=== PATIENT | female | born 1950 | race Caucasian/White ===

== ENCOUNTER 2018-03-28 00:36 | Outpatient (CLI) | payer MEDICARE, SELFPAY ==
--- NOTE | 2018-03-28 14:50 | DI.RAD_ITS ---
SYMPTOMS/DIAGNOSIS: MENOPAUSAL, Z78.0 DEXA SCAN WITH ASHLEY: The ASHLEY image shows no evidence of compression fractures. The upper thoracic vertebral bodies are not included on the exam. There are degenerative changes in the lumbar spine. The bone mineral density measurements of the lumbar spine correspond to a total T score of -0.5, in the normal range. The bone mineral density measurements of the left hip correspond to a total T score of -1.1 and a femoral neck T score of -1.3, in the osteopenic range. The left forearm bone mineral density measurements correspond to a T score of the distal third of - 0.6, in the normal range. IMPRESSION: Osteopenia of the left hip. Normal bone mineral density of the lumbar spine and left forearm.
--- NOTE | 2018-03-28 15:05 | DI.MAMMO_ITS ---
SYMPTOM/DIAGNOSIS: SCREENING, FAMILY H/O BREAST CA, Z12.31 MAMMOGRAMS: Mammograms were interpreted according to the usual protocol including computer analysis with CAD system, tomosynthesis and C view imaging. Comparison is made with exams from [id number]. The breasts are composed of heterogeneously dense fibroglandular tissue. Breast density, category C. No suspicious masses or suspicious microcalcifications are seen. There has been no significant change. IMPRESSION: Category 1C, negative mammogram. Yearly screening mammography is recommended. [facility] ASSESSMENT OF FINDINGS: Negative. Category 1. Patient will receive a letter notifying them of these results. Bi-RADS category C. The breasts are heterogeneously dense, which may obscure small masses.
== END 2018-03-28 00:56 ==
PROVIDERS: PCP Family Medicine; Visit Provider Family Medicine
DX: Z12.31 Encounter for screening mammogram for malignant neoplasm of breast (principal); Z80.3 Family history of malignant neoplasm of breast; M85.88 Other specified disorders of bone density and structure, other site; Z78.0 Asymptomatic menopausal state
CPT/HCPCS: 77063; 77067; 77080

== ENCOUNTER 2018-10-19 10:33 | Outpatient (REF) | payer MEDICARE, SELFPAY ==
[2018-10-19 15:01] LABS: TSH (W/Ref FT4) 3.26 uIU/mL (0.36-3.74)
== END 2018-10-19 10:53 ==
LOC: NCHCN 10:33
PROVIDERS: PCP Family Medicine; Visit Provider Family Medicine
DX: E03.9 Hypothyroidism, unspecified (principal)
CPT/HCPCS: 84443

== ENCOUNTER 2019-03-15 08:41 | Outpatient (REF) | payer MEDICARE, SELFPAY ==
[2019-03-15 12:53] LABS: ALT 21 U/L (14-59); AST 18 U/L (15-37); Albumin 4.2 g/dL (3.4-5.0); Alkaline Phosphatase 66 U/L (46-116); Anion Gap 6.4 mmol/L (3-11); BUN 16 mg/dL (7-18); Bilirubin, Total 0.6 mg/dL (0.2-1.0); CO2 30.6 mmol/L (21.0-32.0); CREATININE 0.81 mg/dL (0.55-1.02); Calcium 9.5 mg/dL (8.5-10.1); Calculated LDL 155 mg/dL; Chloride 101 mmol/L (98-107); Cholesterol 237 mg/dL (<200); Glucose 99 mg/dL (74-106); HDL Cholesterol 61 mg/dL (40-60); Sodium 138 mmol/L (136-145); TSH (W/Ref FT4) 3.75 uIU/mL (0.36-3.74); Total Protein 7.1 g/dL (6.4-8.2); Triglyceride 105 mg/dL (<150)
[2019-03-15 13:12] LABS: FREE T4 1.04 ng/dL (0.76-1.46)
== END 2019-03-15 09:01 ==
LOC: NCHCN 08:41
PROVIDERS: PCP Family Medicine; Visit Provider Family Medicine
DX: E03.9 Hypothyroidism, unspecified (principal); E78.5 Hyperlipidemia, unspecified; Z86.39 Personal history of other endocrine, nutritional and metabolic disease
CPT/HCPCS: 80053; 80061; 84439; 84443

== ENCOUNTER 2019-10-20 11:52 | Emergency (ER) | payer MEDICARE, SELFPAY ==
[2019-10-20 11:57] VITALS: PULSE 58; RESP 16; TEMP 36.4; O2SAT 98
--- NOTE | 2019-10-20 12:02 | ED.GENADUL_ITS ---
Discharge Plan Disposition Patient Disposition: HOME Condition: Stable Discharge Details Chief Complaint: Laceration Clinical Impression: Laceration of left index finger Primary Care Provider: Lyric Matos ED Provider: Nica Weaver Home Meds and New Rx's Prescriptions: No Action multivitamin [Daily Multiple] 1 EACH tablet 1 tab PO DAILY RF: 0 fexofenadine [Hodan Allergy] 60 MG tablet 60 mg PO DAILY RF: 0 metoprolol succinate 50 MG tablet extended release 24 hr 50 mg PO DAILY RF: 0 ibuprofen 600 MG tablet 600 mg PO QID PRN (Reason: Pain) Qty: 15 RF: 0 ondansetron 4 MG tablet,disintegrating 4 mg PO Q6H PRN (Reason: Nausea) Qty: 10 RF: 0 Discharge Instructions Instructions: Finger Laceration (ED) Additional Instructions: Have sutures removed in 5 to 7 days. Return sooner for any increased redness, swelling, drainage or signs of infection. Please take Tylenol or Ibuprofen with food every 4-6 hours as needed for pain and swelling. Lidocaine anesthetic will wear off in approximately 2 hours. No soaking. After 12 to 24 hours you may wash wound under running soap and water, allow to air dry every day. Keep clean and dry and covered when outside. Referrals: Lyric Matos [Primary Care Provider] - Discharge Data Discharge Date/Time-TO BE ENTERED AT DEPARTURE: 10/20/19 12:45 Medical Decision Making 69-year-old female presents to the ER with chief complaint of left index finger laceration. Approximately an hour prior to arrival patient was using a sewing machine when her finger got caught in the needle, she pulled her finger out sustaining a laceration. There is approximately 0.6 cm in length to the distal tip of her left index finger. There is a slow venous ooze noted upon arrival. She does have full range of motion noted to her finger. Last tetanus shot was 2011 she does not take any blood thinners or aspirin daily. As noted in procedure note above, wound cleaned with chlorhexidine and sterile saline, infiltrated with 1% lidocaine without epi, patient tolerated well. Finger turnicot applied for procedure to control bleeding. Was on for approximately 5 to 10 minutes. 3 simple interrupted sutures placed 5.0 Prolene. Patient tolerated well, anesthesia achieved. Nonadherent dressing applied by staffing operations manager prior to discharge. Discussed home care and having sutures removed in 7 days, verbalized understanding. Discussed red flags and strict return instructions including infection or concerns. Verbalized understanding. HPI General Mode of arrival: ambulatory . Date/Time Provider Initiated Documentation: 10/20/19 12:01 . Limitations to Documentation: no limitations . Information obtained by: patient . HPI Narrative: 69-year-old female presents to the ER with chief complaint of left index finger laceration. Approximately an hour prior to arrival patient was using a sewing machine when her finger got caught in the needle, she pulled her finger out sustaining a laceration. There is approximately 0.6 cm in length to the distal tip of her left index finger. There is a slow venous ooze noted upon arrival. She does have full range of motion noted to her finger. Last tetanus shot was 2011 she does not take any blood thinners or aspirin daily. Related Data Home Medications Medication Instructions Recorded Confirmed fexofenadine [Hodan Allergy] 60 mg PO DAILY 10/30/16 10/20/19 metoprolol succinate 50 mg PO DAILY 10/30/16 10/20/19 multivitamin [Daily Multiple] 1 tab PO DAILY 10/30/16 10/20/19 ibuprofen 600 mg PO QID PRN #15 tablet 11/02/16 10/20/19 ondansetron 4 mg PO Q6H PRN #10 tabef 11/02/16 10/20/19 Previous Rx's Medication Instructions Recorded ibuprofen 600 mg PO QID PRN #15 tablet 11/02/16 ondansetron 4 mg PO Q6H PRN #10 tabef 11/02/16 Allergies Allergy/AdvReac Type Severity Reaction Status Date / Time Penicillins Allergy Intermediate Hives Unverified 10/20/19 12:02 General Stated Complaint: Laceration ÁNGEL: 4 Review of Systems All systems reviewed & are unremarkable except as noted in HPI and below Integumentary/Breasts Skin/Breast: Reports wounds (Laceration noted to the distal tip of her left index finger.) [facility] Social History Smoking/Tobacco Use Status: Never Alcohol Intake: current Alcohol Intake frequency: 0-2 drinks per day Drug use: Never Do you feel safe at home: Yes Do you feel safe in your relationship?: Yes Exam Narrative Exam Narrative: Constitutional: Alert and oriented x3. Appears stated age. Normal body habitus. Head: Normocephalic, no trauma. Chest: RRR, Normal S1, S2, distal pulses intact. Resp: Lungs clear to auscultation bilaterally, no wheezes, rales, or rhonchi. Musculoskeletal: Normal gait, 5/5 strength to all four extremities. Skin: Capillary refill less than 2 sec. approximately 0.6 cm laceration noted to the distal tip of patient's left index finger, there is a slow venous ooze noted. Partial-thickness. See below Hematologic/Lymphatic: No ecchymosis, no lymphadenopathy. Extrem Hand/finger images: 1. Laceration Course Vital Signs Vital signs: Vital Signs Temperature 36.4 C L 10/20/19 11:57 Pulse 58 L 10/20/19 11:57 Respiratory Rate 16 10/20/19 11:57 Pulse Oximetry 98 10/20/19 11:57 Temperature 36.4 C L 10/20/19 11:57 Temperature Source Temporal Artery Scan 10/20/19 11:57 Pulse 58 L 10/20/19 11:57 Respiratory Rate 16 10/20/19 11:57 Respiratory Effort Non-Labored 10/20/19 12:00 Blood Pressure Position Sitting 10/20/19 11:57 Pulse Oximetry 98 10/20/19 11:57 Oxygen Delivery Method Room Air 10/20/19 11:57 Oxygen Flow Rate 0 10/20/19 11:57 Pain Level 1 10/20/19 11:57 Procedures Laceration Laceration 1: Site: hand (index finger) Side (If applicable): left Size (cm): 0.6 Description: irregular Depth: simple, single layer Local Anesthetic: Lidocaine 1% Amount of anesthesia used (mL): 1 Pre-repair: wound explored and irrigated extensively Skin layer closed with: nylon Size (cm): 5-0 Number of sutures: 3 Technique: simple, interrupted
== END 2019-10-20 12:45 | disposition home or self-care (01) ==
LOC: ER 12:52
PROVIDERS: Emergency Provider Registered Nurse Emergency; PCP Family Medicine
DX: S61.211A Laceration without foreign body of left index finger without damage to nail, initial encounter (principal); W27.3XXA Contact with needle (sewing), initial encounter
CPT/HCPCS: 12001

== ENCOUNTER 2019-10-26 09:59 | Emergency (ER) | payer MEDICARE, SELFPAY ==
--- NOTE | 2019-10-26 10:02 | ED.GENADUL_ITS ---
Discharge Plan Disposition Patient Disposition: HOME Condition: Good Discharge Details Chief Complaint: SutureRem Clinical Impression: Visit for suture removal Primary Care Provider: Lyric Matos ED Provider: Kasia Batres Home Meds and New Rx's Prescriptions: Continued multivitamin [Daily Multiple] 1 EACH tablet 1 tab PO DAILY RF: 0 fexofenadine [Hodan Allergy] 60 MG tablet 60 mg PO DAILY RF: 0 metoprolol succinate 50 MG tablet extended release 24 hr 50 mg PO DAILY RF: 0 ibuprofen 600 MG tablet 600 mg PO QID PRN (Reason: Pain) Qty: 15 RF: 0 Discharge Instructions Instructions: Stitches Removal (ED) Additional Instructions: Your wound appears to be healing well. Please still continue to be careful with this as it is healing, wear gloves or Band-Aid when appropriate. Please monitor for signs of infection including redness, warmth, drainage, increased pain, fever/chills. If develop these or other new/worsening symptoms seek care urg ently once again. Follow-up with primary care as needed. Referrals: Lyric Matos [Primary Care Provider] - Medical Decision Making Patient is a pleasant 69-year-old female presented to complaint suture removal. 1 week ago, #3 simple interrupted stitches were placed into the left index finger after patient suffered laceration. #2 were visualized today. The third seems to have come out. 1 of the 2 that were remaining was broken. These were easily removed by myself. Wound appears to be healing well with no evidence of infection. We discussed continued wound care. Return precautions were given. All the questions and concerns were addressed in agreement this plan. HPI General Mode of arrival: ambulatory . Date/Time Provider Initiated Documentation: 10/26/19 10:01 . Limitations to Documentation: no limitations . Information obtained by: patient and RN notes reviewed . History of Present Illness 69 year old F presents to the emergency department with the chief complaint of suture removal, described as mild (denies pain at this time), and is localized to the left and upper extremity. Patient reports no radi ation. Patient started experiencing this week(s) (1) No relieving factors improve symptom(s), No exacerbating factors reported . Patient notes no other symptoms.. Patient did receive the following treatments prior to arrival, none Related Data Home Medications Medication Instructions Recorded Confirmed fexofenadine [Hodan Allergy] 60 mg PO DAILY 10/30/16 10/26/19 metoprolol succinate 50 mg PO DAILY 10/30/16 10/26/19 multivitamin [Daily Multiple] 1 tab PO DAILY 10/30/16 10/26/19 ibuprofen 600 mg PO QID PRN #15 tablet 11/02/16 10/26/19 Previous Rx's Medication Instructions Recorded ibuprofen 600 mg PO QID PRN #15 tablet 11/02/16 Allergies Allergy/AdvReac Type Severity Reaction Status Date / Time Penicillins Allergy Intermediate Hives Unverified 10/26/19 10:07 General ÁNGEL: 4 Review of Systems Constitutional Constitutional: Reports as per HPI, Denies chills, Denies fever(s) and Denies weakness Musculoskeletal Musculoskeletal: Reports as per HPI and Denies tingling Integumentary/Breasts Skin/Breast: Reports as per HPI Neurologic Neurologic: Denies sensory deficit, Denies tingling and Denies weakness PFS Social History Smoking/Tobacco Use Status: Never Alcohol Intake: current Alcohol Intake frequency: 0-2 drinks per day Drug use: Never Do you feel safe at home: Yes Do you feel safe in your relationship?: Yes Exam Const General: cooperative, healthy appearing, comfortable, no acute distress and well developed Nutritional Appearance: average body habitus and well nourished Orientation: alert and awake Resp Effort & Inspection: normal respiratory effort, able to speak in complete sentences and no respiratory distress Cardio Rate: regular rate Rhythm: regular rhythm Skin Trauma: laceration (healing well to distal left index finger) Neuro General: patient alert and patient awake Cognition: normal cognition Speech: speech normal Gait: normal gait Motor: muscle tone normal throughout Extrem Hand/finger images: 1. appears to be healing well with no signs of infection. Sensation deficit over tony wound itself, sensation intact around wound Psych Appearance: grossly normal and well kempt Mental Status: mental status grossly normal Speech and Movement: speech and movement normal
[2019-10-26 10:03] VITALS: BP 106/92; PULSE 72; RESP 18; TEMP 36.3; O2SAT 98
[2019-10-26 10:07] VITALS: BP 106/92; PULSE 72; RESP 18; TEMP 36.3; O2SAT 98
== END 2019-10-26 10:11 | disposition home or self-care (01) ==
PROVIDERS: Emergency Provider Physician Assistant; PCP Family Medicine
DX: S61.211D Laceration without foreign body of left index finger without damage to nail, subsequent encounter (principal); W27.3XXD Contact with needle (sewing), subsequent encounter; Z48.02 Encounter for removal of sutures

== ENCOUNTER 2019-11-29 02:11 | Outpatient (CLI) | payer MEDICARE, SELFPAY ==
--- NOTE | 2019-11-29 | DI.RAD_ITS ---
EXAM: XR HIP RT COMPLETE AP PELVIS INDICATION: SI JOINT PAIN,M53.3,. COMPARISON: No exams were available for comparison TECHNIQUE: 2D digital imaging was performed. FINDINGS: Hip joint spaces are well maintained. There is minimal acetabular spurring bilaterally. The SI join ts are unremarkable. There is no evidence bony erosion or significant degenerative change or abnorma l widening. Degenerative disc changes are seen at L4-5 and L5-S1. IMPRESSION: Minimal degenerative changes of the hips and SI joints. DATA REPOSITORY: RADIATION DOSE DELIVERED:
== END 2019-11-29 02:31 ==
PROVIDERS: PCP Family Medicine; Visit Provider Family Medicine
DX: M16.0 Bilateral primary osteoarthritis of hip (principal); M53.3 Sacrococcygeal disorders, not elsewhere classified; M47.816 Spondylosis without myelopathy or radiculopathy, lumbar region
CPT/HCPCS: 73502

== ENCOUNTER 2020-03-06 01:02 | Outpatient (CLI) | payer MEDICARE, SELFPAY ==
--- NOTE | 2020-03-06 12:25 | DI.MAMMO_ITS ---
EXAM: MG MAMMO SCREENING CLINICAL HISTORY: SCREENING, Z12.31, FAMILY H/O BRESAT CA. TECHNIQUE: Bilateral full field digital CC and MLO mammographic images were obtained with 3D tomosyn thesis and utilizing computer aided detection (CAD). COMPARISON: Prior mammograms dating back to 2010, the most recent being February 2018. This patient' s sister was diagnosed with breast cancer at age 50. FINDINGS: The fibroglandular tissue is again noted be dense, this decreasing the sensitivity of the mammogram f or finding hidden underlying lesions. There are no obvious spiculated masses nor malignant appearing microcalcification groups. There is n o significant architectural distortion nor skin thickening-retraction. IMPRESSION: Dense bilateral fibroglandular tissue. No obvious radiographic evidence of malignancy nor significan t change compared to the prior studies listed above. BI-RADS Category 1 - Negative Breast Density - Category C - Heterogeneously dense Breast density Category C or D implies that the patient has dense breast tissue. Dense breast tissue can make it harder to find cancer on a mammogram. Dense breast tissue is also associated with an incr eased risk of breast cancer. This information about the result of the mammogram report was provided to the patient to raise their awareness. Use this report when you speak with the patient about their risks for breast cancer, which includes their family history. At that time, you may recommend additional screening tests (Ultrasoun d or MRI) as these tests may add significant information. A negative radiographic report should not delay biopsy if a dominant or clinically suspicious mass is present. Up to ten percent of cancers are not identified on mammography. A negative report may reinforce clinical impression. Adenosis and dense breasts may obscure an underlying neoplasm. False positive reports average 6 to 10%. Patient will receive a letter notifying them of these results.
== END 2020-03-06 01:22 ==
PROVIDERS: PCP Family Medicine; Visit Provider Nurse Practitioner Family
DX: Z12.31 Encounter for screening mammogram for malignant neoplasm of breast (principal); Z80.3 Family history of malignant neoplasm of breast
CPT/HCPCS: 77063; 77067

== ENCOUNTER → 2020-03-27 08:54 | Outpatient (BNVA) | payer MEDICARE, SELFPAY | PROVIDERS: PCP Family Medicine; Referring Provider Family Medicine; Visit Provider Student in an Organized Health Care Education/Training Program | DX: M65.341 Trigger finger, right ring finger (principal) | CPT/HCPCS: 20550; 99213; J1030 ==

== ENCOUNTER 2020-06-04 13:17 | Outpatient (REF) | payer MEDICARE, SELFPAY | END 2020-06-04 13:18 | disposition home or self-care (01) | LOC: NCHCN 13:17 | PROVIDERS: PCP Family Medicine | DX: E03.9 Hypothyroidism, unspecified (principal) | CPT/HCPCS: 84443 ==

== ENCOUNTER 2020-10-13 03:41 | Outpatient (CLI) | payer MEDICARE, SELFPAY ==
--- NOTE | 2020-11-13 12:03 | W.CARDEVENT ---
Date of service: 11/13/20 Time of Service: 12:03 Cardiac Event Recorder Referring Provider:: Lyric Marcus Indications:: Syncope Cardiac Event Note: This is a 30-day cardiac event recorder, reportedly ordered for syncope. Predominant rhythm was sinus. Average heart rate was 62. Minimum was 48 There were rare atrial and ventricular ectopic beats There were several episodes of supraventricular tachycardia, 1 of which was associated with symptoms of fluttering. Heart rate was 1 30-1 45. The duration of the tachycardia was not clear. This may represent atrial flutter. There was no high-grade AV block. There were no pauses greater than 3 seconds
== END 2020-10-13 03:42 | disposition home or self-care (01) ==
LOC: RT 03:41
PROVIDERS: PCP Family Medicine; Visit Provider Family Medicine
DX: R55 Syncope and collapse (principal)
CPT/HCPCS: 93270

== ENCOUNTER 2020-11-13 12:03 | Outpatient (CLI) | payer MEDICARE, SELFPAY | END 2020-11-13 12:04 | LOC: CARDO 11-14 12:31 | PROVIDERS: PCP Family Medicine; Referring Provider Family Medicine; Visit Provider Internal Medicine Cardiovascular Disease | DX: R55 Syncope and collapse (principal); I47.1 Supraventricular tachycardia | CPT/HCPCS: 93272 ==

== ENCOUNTER → 2021-01-19 08:13 | Outpatient (BNVA) | payer MEDICARE, SELFPAY | PROVIDERS: PCP Family Medicine; Referring Provider Family Medicine | DX: M65.341 Trigger finger, right ring finger (principal) | CPT/HCPCS: 99213 ==

== ENCOUNTER 2021-02-20 01:56 | Outpatient (CLI) | payer MEDICARE, SELFPAY ==
[2021-02-20 10:37] LABS: Source Nasal/Nares
[2021-02-21 13:55] LABS: COVID-19 PCR Negative (Negative)
== END 2021-02-20 01:57 | disposition home or self-care (01) ==
LOC: LBO 01:56
PROVIDERS: PCP Family Medicine; Visit Provider Student in an Organized Health Care Education/Training Program
DX: Z20.822 Contact with and (suspected) exposure to COVID-19 (principal)
CPT/HCPCS: 87635

== ENCOUNTER 2021-02-23 13:58 | Day surgery (SDC) | payer MEDICARE, SELFPAY ==
--- NOTE | 2021-02-23 11:09 | W.PM.DSUDISC ---
Discharge Plan Disposition Patient Disposition: HOME Condition: Good Discharge Details Reason For Visit: Right Ring Finger Trigger Finger Attending Provider: Joseph Ortega Primary Care Provider: Lyric Matos Home Meds and New Rx's Prescriptions: New acetaminophen 500 mg capsule 1,000 mg PO Q8H PRN PRNQty: 15 RF: 0 hydrocodone-acetaminophen 5-325 mg tablet 1 tab PO Q6H PRNQty: 5 RF: 0 ibuprofen 600 mg tablet 600 mg PO TID Qty: 15 RF: 0 Continued cholecalciferol (vitamin D3) 50 mcg (2,000 unit) capsule 50 mcg PO DAILY RF: 0 fluticasone propionate 50 mcg/actuation spray,suspension 1 spray intranasal DAILY RF: 0 levothyroxine 25 mcg capsule 25 mcg PO DAILY RF: 0 Systane Balance 0.6 % drops 1 drp ophthalmic (eye) DAILY PRNRF: 0 multivitamin [Daily Multiple] 1 EACH tablet 1 tab PO DAILY RF: 0 fexofenadine [Hodan Allergy] 60 MG tablet 60 mg PO DAILY RF: 0 metoprolol succinate 50 MG tablet extended release 24 hr 50 mg PO DAILY RF: 0 ibuprofen 600 MG tablet 600 mg PO QID PRN (Reason: Pain) Qty: 15 RF: 0 Discharge Instructions Stand Alone Forms: Shannon Xavier Finger Release Activity:: Activity as Tolerated Remove Dressings/Wound Care:: 72 hours Shower/Bathe:: 72 hours Diet:: As Tolerated Discharge Orders Discharge Orders: Discharge Order (Routine); Ordered 02/23/21 Ordered By: Josie Laughlin DS: Diagnosis Discharge Diagnosis (1) Trigger finger, right ring finger: Status: Acute
[2021-02-23 14:38] VITALS: BP 128/63; PULSE 69; RESP 16; TEMP 36.8; O2SAT 97
[2021-02-23] MEDS: Sodium Bicarbonate 50 MEQ/50 ML VIAL (15:50)
[2021-02-23 16:04] VITALS: BP 111/57; PULSE 60; RESP 18; TEMP 36.5; O2SAT 97
--- NOTE | 2021-02-23 20:43 | W.PM.OP ---
Date of service: 02/23/21 Time of Service: 16:02 Operative Note Operative Note DATE OF PROCEDURE: 02/23/21 PRE-OP DIAGNOSIS: Right ring finger trigger finger POST-OP DIAGNOSIS: same PROCEDURE: Trigger Finger Release -right ring finger SURGEON: Joseph Ortega ANESTHESIA TYPE: Local By Surgeon Refer to Anesthesia Record ESTIMATED BLOOD LOSS: 0 PATHOLOGY: none sent TOURNIQUET TIME: 0 COMPLICATIONS: None Patient was transported to: same day Patient's condition: stable Indications: I have seen Ana in clinic for symptoms of a trigger finger. The catching, clicking, locking, and pain limited function. The diagnosis of trigger finger was evident. The symptoms had not responded to conservative measures. I discussed trigger finger release with the patient. I reviewed the risks of the procedure to include, but not limited to, bleeding, infection, pain, stiffness, incomplete release, damage to nerves or vessels, continued catching, recurrence. Despite these risks, the patient elected to proceed. Findings: There was a tightened A1 alethea which was released. The flexor tendons were inspected and the patient was able to move the finger without any catching, clicking, or locking. Procedure Description: Ana was greeted in the preoperative holding area where the correct side was identified and marked. The consent was reviewed with the patient and signed. All questions were answered. She was taken back to the operating room. The patient was placed into the supine position on the operating room table with the right arm on an arm board. All bony prominences were well padded. No prophylactic antibiotics were administered since this was a clean, elective hand surgical case. The right arm was then prepped with Chloraprep and draped in a standard fashion with stockinette and extremity drape. A timeout to confirm correct identity, side and site, procedure, allergies, anesthesia, and medical concerns was performed. The surgical site was marked as a longitudinal incision directly over the A1 alethea of the involved digit. This was confirmed with palpation during finger flexion. This area, overlying the metacarpal head, was then anesthetized with 1% Lidocaine. The patient tolerated this well and once the anesthetic had setup, the procedure began. A longitudinal incision was made through skin only, approximately 1cm. The deep tissues were dissected bluntly. Once the A1 alethea and flexor tendons were identified the soft tissue including neurovascular structures were retracted medially and laterally. There were no crossing structures over the A1 alethea. The proximal edge of the alethea was identified and the alethea was incised with tenotomy scissors. There was a release of the tendons once this was fully released. The tendons were then removed from the wound and inspected. Excess synovium was resected. There was some mild fraying seen about the tendons which was trimmed. The tendons were then returned and the patient was asked to move the finger into deep flexion and back to extension. There was no recreation of the pre-operative symptoms. The hand was then once more inspected for any A0 alethea or area of possible constriction. The wound was then irrigated and the skin was closed with a 4-0 Nylon. This was dressed with gauze and a Conform dressing. The patient tolerated the procedure well and was returned to the Same Day Surgery area in a stable condition suffering no known complication.
== END 2021-02-23 16:35 | disposition home or self-care (01) ==
LOC: SUR 13:58
PROVIDERS: PCP Family Medicine; Visit Provider Student in an Organized Health Care Education/Training Program
PROC: (CPT 26055; principal; 2021-02-23 18:15)
DX: M65.341 Trigger finger, right ring finger (principal)
CPT/HCPCS: 26055

== ENCOUNTER → 2021-03-04 08:54 | Outpatient (BNVA) | payer MEDICARE, SELFPAY | PROVIDERS: PCP Family Medicine; Referring Provider Family Medicine | DX: Z47.89 Encounter for other orthopedic aftercare (principal) ==

== ENCOUNTER → 2021-08-19 01:22 | Outpatient (CLI) | payer MEDICARE, SELFPAY ==
--- NOTE | 2021-08-19 | DI.MAMMO_ITS ---
Exam(s) MAMMO SCREENING EXAM: MAMMO SCREENING CLINICAL HISTORY: SCREENING, Z12.31 TECHNIQUE: Bilateral full field digital CC and MLO mammographic images were obtained with 3D tomosyn thesis and utilizing computer aided detection (CAD). COMPARISON: Available for comparison. FINDINGS: Masses/Architectural Distortion: None seen. Microcalcifications: No suspicious pleomorphic-type are seen. Skin Thickening/Nipple Retraction: None. IMPRESSION: 1. No significant interval change with no specific features of malignancy noted. 2. Unless there is more urgent need, screening mammography is recommended, as per [employer] [place] [employer] guidelines. BI-RADS Category 1 - Negative Breast Density - Category C - Heterogeneously dense Breast density category C or D implies that the patient has dense breast tissue. Dense breast tissue is very common and is not abnormal but dense breast tissue can make it harder to find cancer on a ma mmogram. Also, dense breast tissue may increase their breast cancer risk. This information about the result of the mammogram report was provided to the patient to raise their awareness. Use this report when you speak with the patient about their risks for breast cancer, which includes their family hist ory. At that time, you may recommend for more screening tests (Ultrasound or MRI) as they might be us eful based on their risk. A negative radiographic report should not delay biopsy if a dominant or clinically suspicious mass is present. Up to ten percent of cancers are not identified on mammography. A negative report may reinforce clinical impression. Adenosis and dense breasts may obscure an underlying neoplasm. False positive reports average 6 to 10%. Patient will receive a letter notifying them of these results.
== END ==
PROVIDERS: PCP Family Medicine; Visit Provider Family Medicine
DX: Z12.31 Encounter for screening mammogram for malignant neoplasm of breast (principal)
CPT/HCPCS: 77063; 77067

== ENCOUNTER 2021-09-29 14:54 | Outpatient (REF) | payer MEDICARE, SELFPAY ==
[2021-09-29 15:10] LABS: ALT 22 U/L (14-59); AST 20 U/L (15-37); Alkaline Phosphatase 59 U/L (46-116); Anion Gap 7.9 mmol/L (3-11); BUN 16 mg/dL (7-18); Bilirubin, Total 0.4 mg/dL (0.2-1.0); CO2 27.1 mmol/L (21.0-32.0); CREATININE 0.8 mg/dL (0.55-1.02); Calcium 9.3 mg/dL (8.5-10.1); Calculated LDL 160 mg/dL (<100); Chloride 103 mmol/L (98-107); Cholesterol 236 mg/dL (<200); Glucose 106 mg/dL (74-106); HDL Cholesterol 60 mg/dL (40-60); Potassium 5.6 mmol/L (3.5-5.1); Sodium 138 mmol/L (136-145); TSH (W/Ref FT4) 4.13 uIU/mL (0.36-3.74); Total Protein 7.2 g/dL (6.4-8.2); Triglyceride 84 mg/dL (<150)
== END 2021-09-29 14:55 | disposition home or self-care (01) ==
LOC: NCHCN 14:54
PROVIDERS: PCP Family Medicine; Visit Provider Family Medicine
DX: E03.9 Hypothyroidism, unspecified (principal); E55.9 Vitamin D deficiency, unspecified; E78.5 Hyperlipidemia, unspecified; Z86.39 Personal history of other endocrine, nutritional and metabolic disease
CPT/HCPCS: 80053; 80061; 82306; 84439; 84443